=== PATIENT | female | born 2005 | race Asian ===

== ENCOUNTER 2024-06-04 18:44 | Emergency (ER) | payer OTHER ==
[2024-06-04 18:56] VITALS: BP 128/81; PULSE 83; RESP 20; TEMP 97.9; BMI 28.2
[2024-06-04 20:01] LABS: ABSOLUTE IMMATURE GRANULOCYTES 0.02 x10^3/uL (0.0-0.031); BASOPHILS # 0.02 x10^3/uL (0.01-0.08); EOSINOPHIL % 2.6 % (0.7-5.8); EOSINOPHILS # 0.21 x10^3/uL (0.04-0.36); HEMATOCRIT 42.9 % (34.1-44.9); HEMOGLOBIN 13.8 g/dL (11.2-15.7); MCHC 32.2 g/dl (32.2-35.5); MEAN CELL VOLUME 89.7 fl (79.4-94.8); MEAN PLT VOLUME 9.9 fl (9.4-12.3); MONOCYTE # 0.48 x10^3/uL (0.24-0.86); MONOCYTE % 5.9 % (4.7-12.5); PLATELET COUNT # 199 x10^3/uL (182-369); RDW 12.7 % (12.1-16.5)
[2024-06-04] MEDS ORDERED: ACETAMINOPHEN INJECTION 100 ML ONE (20:02)
[2024-06-04] MEDS ORDERED: METOCLOPRAMIDE HCL INJECTION 10 MG/2 ML VIAL ONE (20:02)
[2024-06-04] MEDS: SODIUM CHLORIDE 0.9% 500 ML INFUS.BAG IV ONE (20:17)
[2024-06-04] MEDS: METOCLOPRAMIDE HCL INJECTION 10 MG/2 ML VIAL IVPB ONE (20:17)
[2024-06-04] MEDS: ACETAMINOPHEN 1000 MG/100 ML BAG IVPB ONE (20:17)
[2024-06-04 20:25] LABS: POTASSIUM 4.1 mmol/L (3.5-5.1)
[2024-06-04 20:27] LABS: BLOOD UREA NITROGEN 11.8 mg/dL (7-18); CALCIUM 9.2 mg/dL (8.5-10.1)
[2024-06-04 20:31] LABS: CREATININE 0.6 mg/dL (0.55-1.3)
[2024-06-04 20:32] LABS: BILIRUBIN,TOTAL 0.4 mg/dL (0.2-1); TOT PROT 7.9 g/dl (6.4-8.2)
== END 2024-06-04 21:46 | disposition home or self-care (01) ==
LOC: JER 18:44
PROC: 3E033NZ Introduction of Analgesics, Hypnotics, Sedatives into Peripheral Vein, Percutaneous Approach (ICD-10-PCS; principal; 2024-06-04)
PROC: 3E033GC Introduction of Other Therapeutic Substance into Peripheral Vein, Percutaneous Approach (ICD-10-PCS; 2024-06-04)
DX: R51.9 Headache, unspecified (principal); H53.8 Other visual disturbances
CPT/HCPCS: 36415; 70450-TC; 80053; 84703; 85025; 99285-25; J0131